=== PATIENT | male | born 1970 | race Caucasian/White ===

== ENCOUNTER 2017-05-16 23:35 | Emergency (ER) | payer SELFPAY ==
[~2017-05-16] VITALS: Ht 182.9 cm; Wt 108.9 kg
[2017-05-17] MEDS ORDERED: ACETAMINOPHEN 325 MG TAB PO ONE
[2017-05-17] MEDS ORDERED: SODIUM CHLORIDE 0.9% 1,000 ML IV ONE (07:14)
[2017-05-17] MEDS ORDERED: KETOROLAC TROMETH 30 MG/ML 1ML VIAL IV ONE (07:15)
[2017-05-17] MEDS ORDERED: METOCLOPRAMIDE HCL 5MG/ml INJ 2ml VIAL IV ONE (07:15)
[2017-05-17 11:30] VITALS: BP 110/60
== END 2017-05-17 12:21 | disposition home or self-care (01) ==
LOC: ER 23:35
DX: S82.002A Unspecified fracture of left patella, initial encounter for closed fracture (principal); X50.0XXA Overexertion from strenuous movement or load, initial encounter; M23.92 Unspecified internal derangement of left knee; Y93.89 Activity, other specified; Y99.8 Other external cause status; Y92.89 Other specified places as the place of occurrence of the external cause
CPT/HCPCS: 29505; 73564; 73700; 96361; 96374; 96375; 99285; J1885; J2765

== ENCOUNTER 2024-08-04 11:10 | Inpatient (IN) | payer MEDICAID ==
[~2024-08-04] VITALS: Ht 193 cm; Wt 136.0 kg
[~2024-08-04 11:10] MED LIST: ATOR10TA PO; CHOL20006 PO
[2024-08-04] MEDS: dilTIAZem 25 MG/5 ML VIAL IV ONE (11:52)
[2024-08-04] MEDS: SODIUM CHLORIDE 0.9% 500 ML IVB ONE (11:52)
[2024-08-04 12:08] LABS: Basophils # (auto) 0.1 10 ^3/uL (0-0.2); Eosinophils # (auto) 0.1 10 ^3/uL (0-0.8); Hematocrit 52.6 % (41.0-53.0); Hemoglobin 17.8 g/dL (13.5-17.5); Mean Corpuscular Hemoglobin 29.5 pg (28.0-32.0); Neutrophils # (auto) 5.5 10 ^3/uL (1.6-8.6); Platelet Count (auto) 271 10^3/uL (140-450); Red Cell Distribution Width 14.5 % (11.8-14.3)
[2024-08-04 12:10] LABS: Basophils % (auto) 1.2 % (0.0-2.0); Eosinophils % (auto) 1.4 % (0.0-7.0); Lymphocytes % (auto) 30.6 % (10.0-50.0); Mean Corpuscular Hgb Conc. 33.8 g/dL (32.0-36.0); Mean Corpuscular Volume 87.4 fL (80.0-100.0); Monocytes % (auto) 10.3 % (0.0-12.0); Neutrophils % (auto) 56.5 % (37.0-80.0); Nucleated Red Blood Cells % 0.2 %; Red Blood Cells 6.02 10^6/uL (4.5-5.90); White Blood Cell 9.8 10^3/uL (4.4-10.8)
[2024-08-04] MEDS: dilTIAZem 125mg/125ml BAG KIT 125 ML IV ONE (12:15)
[2024-08-04 12:17] LABS: Chloride 106 mmol/L (98-107); Potassium 4.6 mmol/L (3.5-5.1); Sodium 138 mmol/L (136-145)
[2024-08-04 12:18] LABS: Anion Gap 11 (5-15); Carbon Dioxide 21 mmol/L (20-30)
[2024-08-04 12:19] LABS: Calcium 9.4 mg/dL (8.7-10.4)
[2024-08-04 12:24] LABS: BUN/Creatinine Ratio 9.5 (10.0-20.0); Blood Urea Nitrogen 10 mg/dL (9-23); Glucose 110 mg/dL (74-106)
[2024-08-04] MEDS: ATENOLOL 25 MG TAB PO ONE (12:44)
[2024-08-04] MEDS: AMIODARONE BOLUS KIT 100 ML IV ONE (13:12)
[2024-08-04] MEDS: AMIODARONE 450mg/250ml AE 250 ML IV SCH ×2 (13:30→20:00)
[2024-08-04] MEDS ORDERED: ATOR10TA52 PO (13:56)
[2024-08-04] MEDS ORDERED: TIRZ2.5I SC (13:56)
[2024-08-04] MEDS ORDERED: CHOL20002 PO (13:56)
[2024-08-04] MEDS ORDERED: CHOLCAP10 PO (13:56)
[2024-08-04] MEDS ORDERED: CROM4SOL6 EACHEYE (13:56)
[2024-08-04] MEDS ORDERED: NITROGLYCERIN 0.4 MG SL TAB SL PRN (14:00)
[2024-08-04] MEDS ORDERED: MORPHINE SULFATE INJ 2 MG/ml SYRG IV PRN (14:00)
[2024-08-04] MEDS: ASPirin 325 MG TAB PO ONE (14:24)
[2024-08-04 14:49] VITALS: PULSE 82; RESP 15; O2SAT 99
[2024-08-04 15:02] LABS: Triglycerides 196 mg/dL (< 150)
[2024-08-04 15:03] LABS: LDL Cholesterol 143 mg/dL (< 100)
[2024-08-04 15:04] LABS: Cholesterol 199 mg/dL (< 200); HDL Cholesterol 31 mg/dL (40-59)
[2024-08-04] MEDS: NOREPINEPHRINE 8 MG/250ML KIT 0 ML IV ONE (16:20)
[2024-08-04 19:30] VITALS: PULSE 84; RESP 18; O2SAT 95
[2024-08-04 22:00] LABS: Urine Bacteria None Seen /hpf (None Seen)
[2024-08-04] MEDS: APIXABAN 5 MG TAB PO SCH (22:00)
[2024-08-04] MEDS: METOPROLOL TARTRATE 50 MG TAB PO SCH (22:00)
[2024-08-04 22:10] LABS: Urine Blood Negative /uL (Negative); Urine Clarity Clear (Clear); Urine Color Yellow (Yellow); Urine Hyaline Cast MOD /lpf (0 - 2); Urine Mucus FEW (None Seen); Urine Protein, UAD 1+ (Negative); Urine Specific Gravity 1.038 (1.001-1.035); Urine Urobilinogen 2 mg/dL (Negative); Urine WBC 3 /hpf (0 - 3); Urine pH 5.5 (5.0-9.0)
[2024-08-05 05:15] LABS: Basophils # (auto) 0.1 10 ^3/uL (0-0.2); Basophils % (auto) 0.8 % (0.0-2.0); Eosinophils # (auto) 0.1 10 ^3/uL (0-0.8); Eosinophils % (auto) 1.2 % (0.0-7.0); Hematocrit 50.8 % (41.0-53.0); Hemoglobin 16.7 g/dL (13.5-17.5); Lymphocytes # (auto) 1.9 10 ^3/uL (0.4-5.4); Lymphocytes % (auto) 16.7 % (10.0-50.0); Mean Corpuscular Hemoglobin 28.9 pg (28.0-32.0); Mean Corpuscular Volume 87.7 fL (80.0-100.0); Monocytes # (auto) 1.2 10 ^3/uL (0-1.3); Monocytes % (auto) 10.4 % (0.0-12.0); Neutrophils # (auto) 8.1 10 ^3/uL (1.6-8.6); Neutrophils % (auto) 70.9 % (37.0-80.0); Nucleated Red Blood Cells % 0.1 %; Platelet Count (auto) 240 10^3/uL (140-450); Red Blood Cells 5.79 10^6/uL (4.5-5.90); Red Cell Distribution Width 14.8 % (11.8-14.3); White Blood Cell 11.4 10^3/uL (4.4-10.8)
[2024-08-05 05:31] LABS: Alanine Aminotransferase 80 U/L (7-40); Alkaline Phosphatase 85 U/L (46-116); Anion Gap 0 (5-15); BUN/Creatinine Ratio 13.6 (10.0-20.0); Blood Urea Nitrogen 17 mg/dL (9-23); Calcium 9.3 mg/dL (8.7-10.4); Carbon Dioxide 30 mmol/L (20-30); Chloride 106 mmol/L (98-107); Glucose 113 mg/dL (74-106); Potassium 5.2 mmol/L (3.5-5.1); Sodium 136 mmol/L (136-145)
[2024-08-05 05:32] LABS: Albumin 4.4 g/dL (3.2-4.8); Aspartate Aminotransferase 45 U/L (13-40)
[2024-08-05 05:33] LABS: Bilirubin, Total 1.3 mg/dL (0.2-1.0); Total Protein 6.7 g/dL (5.7-8.2)
[2024-08-05 07:21] VITALS: PULSE 86; RESP 15; O2SAT 94
[2024-08-05] MEDS ORDERED: ENOXAPARIN SOD 40 MG/0.4 ML SYRINGE SC SCH (10:00)
[2024-08-05] MEDS: CHOLECALCIFEROL (VITD3) 1,000UNIT=25mCg TAB PO SCH (10:31)
[2024-08-05] MEDS: ASPirin 81 mg TAB PO SCH (10:31)
[2024-08-05] MEDS: AMIODARONE HCL 200 MG TAB PO ONE (10:53)
[2024-08-05 17:46] VITALS: PULSE 88; O2SAT 96
[2024-08-05 17:48] VITALS: BP 122/95; PULSE 112; RESP 19; TEMP 97.9; O2SAT 94
[2024-08-05] MEDS ORDERED: AMIO100T3 (18:04)
[2024-08-05] MEDS ORDERED: APIX2.5T PO (18:04)
[2024-08-05 20:00] VITALS: PULSE 115
[2024-08-05] MEDS: AMIODARONE HCL 200 MG TAB PO SCH (22:32)
[2024-08-05 23:56] LABS: Chloride 110 mmol/L (98-107); Potassium 3.9 mmol/L (3.5-5.1); Sodium 139 mmol/L (136-145)
[2024-08-05 23:57] LABS: Anion Gap 3 (5-15); Calcium 8.7 mg/dL (8.7-10.4); Carbon Dioxide 26 mmol/L (20-30)
[2024-08-06] VITALS (8 sets, daily range): BP systolic 95–139; BP diastolic 71–96; PULSE 46–122; RESP 16–20; TEMP 97.5–99.3; O2SAT 90–96
[2024-08-06 00:02] LABS: BUN/Creatinine Ratio 16.7 (10.0-20.0); Blood Urea Nitrogen 18 mg/dL (9-23); Glucose 108 mg/dL (74-106)
[2024-08-06] MEDS: FUROSEMIDE 40 MG/4 ML VIAL IV SCH (17:23)
[2024-08-06] MEDS: ACETAMINOPHEN 325 MG TAB PO PRN (21:50)
[2024-08-07 00:46] VITALS: BP 113/80; PULSE 58; RESP 17; TEMP 98.5; O2SAT 94
[2024-08-07 05:00] VITALS: BP 117/60; PULSE 65; RESP 17; TEMP 98.5; O2SAT 98
[2024-08-07 08:00] VITALS: PULSE 97
[2024-08-07 09:00] VITALS: BP 102/58; PULSE 63; RESP 18; TEMP 97.9; O2SAT 94
[2024-08-07] MEDS ORDERED: APIX5TAB PO (10:52)
[2024-08-07] MEDS ORDERED: FURO1TAB31 PO (10:52)
[2024-08-07] MEDS ORDERED: AMIO200T13 PO (10:52)
[2024-08-07] MEDS ORDERED: MET50T PO (10:52)
[2024-08-07 13:00] VITALS: BP 109/79; PULSE 59; RESP 20; TEMP 97.5; O2SAT 96
== END 2024-08-07 13:20 | disposition home or self-care (01) | DRG 201 ==
LOC: ER 11:10 → TELE 13:55 → TELE-WESTW 08-05 17:39
PROVIDERS: ADMIT Nurse Practitioner Family; ATTEND Internal Medicine
DX: I48.91 Unspecified atrial fibrillation (principal); I42.0 Dilated cardiomyopathy; I50.9 Heart failure, unspecified; I11.0 Hypertensive heart disease with heart failure; E86.0 Dehydration; Z79.01 Long term (current) use of anticoagulants; E66.01 Morbid (severe) obesity due to excess calories; F17.210 Nicotine dependence, cigarettes, uncomplicated; E78.5 Hyperlipidemia, unspecified; J44.9 Chronic obstructive pulmonary disease, unspecified; Z79.899 Other long term (current) drug therapy; Z91.199 Patient's noncompliance with other medical treatment and regimen due to unspecified reason; Z68.36 Body mass index [BMI] 36.0-36.9, adult
CPT/HCPCS: 36415; 70450; 71045; 80048; 80053; 80061; 80320; 81001; 83880; 84443; 84484; 85025; 93005; 93306; 96361; 96365; 96367; 96375; 99291; G0378